=== PATIENT | male | born 1960 | race African-American/Black ===

== ENCOUNTER → 2016-12-09 | Outpatient (CLI) | payer MEDICARE, OTHER ==
[2016-12-16 07:06] LABS: OXYCODONE LEVEL Negative
== END | disposition home or self-care (01) ==
LOC: LABPV 15:06
PROVIDERS: ATTEND Physical Medicine & Rehabilitation
DX: Z00.00 Encounter for general adult medical examination without abnormal findings (principal); Z79.891 Long term (current) use of opiate analgesic
CPT/HCPCS: 36415; 80301 ×2; G0434; 80307

== ENCOUNTER → 2018-02-24 | Outpatient (CLI) | payer MEDICARE, OTHER | END | disposition home or self-care (01) | LOC: RADPV 11:44 | PROVIDERS: ATTEND Physical Medicine & Rehabilitation | DX: M16.0 Bilateral primary osteoarthritis of hip (principal); I10 Essential (primary) hypertension | CPT/HCPCS: 73503 ==